=== PATIENT | male | born 1960 | race Caucasian/White ===

== ENCOUNTER 2023-08-05 02:20 | Emergency (ER) | payer MEDICAID, OTHER ==
[~2023-08-05] VITALS: Ht 175.3 cm; Wt 109.0 kg
[~2023-08-05 02:20] MED LIST: AMLO5TAB66 PO; ASPI-1444 PO; ATOR20TA65 PO; ERGO500054 PO; LEVE-71 PO; SEMA1.7P SQ
[2023-08-05 03:20] LABS: ANION GAP 9 mmol/L (8-16); CALCIUM, TOTAL 8.6 mg/dL (8.8-10.5); CARBON DIOXIDE 30 mmol/L (22-29); CHLORIDE 101 mmol/L (98-107); GLOMERULAR FILTR. RATE CALC > 60 mL/min (>60); GLUCOSE,RANDOM 139 mg/dL (70-110); POTASSIUM 4.3 mmol/L (3.5-5.1); SODIUM SERUM 140 mmol/L (136-145); UREA NITROGEN, BLOOD 14 mg/dL (7-18)
[2023-08-05 03:21] LABS: BASOPHILS % (AUTO) 0.4 % (0.0-2.0); EOSINOPHILS % (AUTO) 1.8 % (1.0-6.0); HEMATOCRIT 39.5 % (41-53); HEMOGLOBIN 13.5 g/dL (13.5-17.5); LYMPHOCYTES # (AUTO) 1.7 K/uL (1.0-4.8); LYMPHOCYTES % (AUTO) 17.7 % (22.0-44.0); MEAN CORPUSCULAR HEMOGLOBIN 28.1 pg (26.0-34.0); MEAN CORPUSCULAR HGB CONC 34.1 G/dL (31.0-37.0); MEAN CORPUSCULAR VOLUME 82 fL (80-100); MONOCYTES # (AUTO) 1.2 K/uL (0.1-1.0); MONOCYTES % (AUTO) 12.4 % (2.0-9.0); NEUTROPHILS # (AUTO) 6.6 K/uL (1.8-7.7); NEUTROPHILS % (AUTO) 67.7 % (40.0-70.0); PLATELET COUNT (AUTO) 192 K/uL (150-450); RED BLOOD CELL COUNT(AUTO) 4.79 MIL/uL (4.50-5.90); RED CELL DISTRIBUTION WIDTH 13.2 % (11.5-14.5); WHITE BLOOD COUNT (AUTO) 9.8 K/uL (4.5-11.0)
[2023-08-05 03:29] LABS: LACTIC ACID 0.9 mmol/L (0.4-2.0)
[2023-08-05 03:30] LABS: TROPONIN I-HIGH SENSITIVITY 18 ng/L (<76)
[2023-08-05] MEDS: MORPHINE SULFATE 4 MG/ML SYRINGE IVP ONE (03:56)
[2023-08-05] MEDS: ONDANSETRON HCL 4 MG/2 ML VIAL IVP ONE (03:56)
[2023-08-05] MEDS: VANCOMYCIN 1.75GM/WATER(PEG) 350 ML IV ONE (03:57)
[2023-08-05] MEDS: CIPROFLOXACIN HCL 250 MG TABLET PO ONE (04:30)
[2023-08-05] MEDS: HYDROCODONE/ACETAMINOPHEN 5-325 MG TABLET PO ONE (05:02)
[2023-08-05] MEDS ORDERED: DOCU-412 PO (05:04)
[2023-08-05] MEDS ORDERED: CEPH-558 PO (05:04)
[2023-08-05] MEDS ORDERED: HYDR-4062 PO (05:04)
[2023-08-05] MEDS ORDERED: CIPR500T10 PO (05:04)
[2023-08-05 06:34] VITALS: BP 126/68; PULSE 65; RESP 16; TEMP 97.8
== END 2023-08-05 06:36 | disposition home or self-care (01) ==
LOC: EMS 02:20
DX: H60.21 Malignant otitis externa, right ear (principal); I10 Essential (primary) hypertension; Z86.69 Personal history of other diseases of the nervous system and sense organs
CPT/HCPCS: 99285; 96365; 70480; 96375; 80048; 87205; 83605; 84484; 85025; 87040; 36415; 87186; 87070; J2270; J2405; Q9967

== ENCOUNTER 2023-08-07 02:50 | Emergency (ER) | payer OTHER, MEDICAID ==
[~2023-08-07] VITALS: Ht 180.3 cm; Wt 117.0 kg
[~2023-08-07 02:50] MED LIST changes: +CEPH-558 PO; +CIPR500T10 PO; +DOCU250C99 PO; +HYDR-4062 PO
[2023-08-07 02:53] VITALS: BP 136/76; PULSE 65; RESP 16; TEMP 98.1
[2023-08-07] MEDS: CEPHALEXIN MONOHYDRATE 500 MG CAPSULE PO ONE (03:27)
[2023-08-07] MEDS: LEVOFLOXACIN 500 MG TABLET PO ONE (03:27)
== END 2023-08-07 03:32 | disposition home or self-care (01) ==
LOC: EMS 02:50
DX: H60.21 Malignant otitis externa, right ear (principal); I10 Essential (primary) hypertension
CPT/HCPCS: 99283